=== PATIENT | male | born 1990 | race Caucasian/White ===

== ENCOUNTER 2017-12-10 03:45 | Emergency (ER) | payer MEDICAID, OTHER ==
[~2017-12-10 03:45] MED LIST: FAMOTIDINE 20 MG/NACL 50 ML IV ONE; methylPREDNISolone SOD SUCC 125 MG/2 ML VIAL IVP ONE
[2017-12-10] MEDS ORDERED: diphenhydrAMINE 50 MG CAP PO ONE (03:53)
[2017-12-10] MEDS ORDERED: HYDROCORTISONE 100 MG/2 ML VIAL ONE (03:53)
[2017-12-10] MEDS ORDERED: predniSONE 20 MG TAB ONE (03:53)
[2017-12-10] MEDS ORDERED: methylPREDNISolone SOD SUCC 125 MG/2 ML VIAL ONE (03:57)
[2017-12-10] MEDS ORDERED: FAMOTIDINE 20 MG/NACL/50 ML BAG IV ONE (03:57)
--- NOTE | 2017-12-10 04:03 | EDPHY ---
H & P Stated Complaint: allergic reation Time Seen by Provider: 12/10/17 03:56 HPI/ROS: Chief Complaint: Allergic reaction HPI: 27-year-old male presenting with allergic reaction. Patient states last night he developed some hives after pending a dog that he is at sitting. He took some Benadryl with some relief. Symptoms were improved today. He sat on the couch at the dog was on and has been developing worsening itching and hives primarily on his arms and side. No shortness of breath. No history of prior allergies that he is aware of. No other known exposures. No fevers or chills. No cough. ROS: 10 point Review of Systems is negative except as noted in the HPI. PMH: Denies Social History: No smoking, no alcohol, no recreational drug use Family History: non-contributory Physical Exam: Gen: Awake, Alert, No Distress HEENT: Nose: no rhinorrhea Eyes: PERRLA, EOMI Mouth: Moist mucosa oral airway is nonedematous, no erythema, Neck: Supple, no JVD Chest: nontender, lungs clear to auscultation Heart: S1, S2 normal, no murmur Abd: Soft, non-tender, no guarding Back: no CVA tenderness, no midline tenderness Ext: no edema, non-tender Skin: Patient has diffuse urticaria on the dorsum of his hands on his forearms. Under his arms. Mildly on his back. A bilateral flanks and chest. Neuro: CN II-XII intact, Sensation grossly intact, Strength 5/5 in bilateral upper and lower extremities - Medical/Surgical History Hx Asthma: No Hx Chronic Respiratory Disease: No Hx Diabetes: No Hx Cardiac Disease: No Hx Renal Disease: No Hx Cirrhosis: No Hx Alcoholism: No Hx HIV/AIDS: No Hx Splenectomy or Spleen Trauma: No Other PMH: denies - Social History Smoking Status: Never smoked Constitutional: Initial Vital Signs Temperature (C) 36.6 C 12/10/17 03:53 Heart Rate 78 12/10/17 03:53 Respiratory Rate 20 12/10/17 03:53 Blood Pressure 152/97 H 12/10/17 03:53 O2 Sat (%) 96 12/10/17 03:53 O2 Delivery Mode Room Air Allergies/Adverse Reactions: No Known Allergies Allergy (Unverified 12/10/17 03:53) Home Medications: Medication Instructions Recorded clonAZEPAM [Klonopin] 0 mg PO 03/03/12 predniSONE 60 mg PO DAILY #9 tab 12/10/17 Medical Decision Making ED Course/Re-evaluation: Patient is improved after Benadryl Solu-Medrol and Pepcid. Rash is resolving. He has no breathing or airway complaints. Will discharge with prednisone and continuing Benadryl, follow up with primary care physician. - Data Points Medications Given: Discontinued Medications Diphenhydramine HCl (Benadryl Injection) 50 mg IVP EDNOW ONE Stop: 12/10/17 03:46 Last Admin: 12/10/17 04:04 Dose: 50 mg Famotidine/Sodium Chloride (Pepcid 20 Mg (Premix)) 50 mls @ 200 mls/hr IV EDNOW ONE Stop: 12/10/17 03:59 Last Admin: 12/10/17 04:04 Dose: 50 mls Methylprednisolone Sodium Succinate (Solu-Medrol) 125 mg IVP EDNOW ONE Stop: 12/10/17 03:46 Last Admin: 12/10/17 04:04 Dose: 125 mg Departure - Departure Disposition: Home, Routine, Self-Care Clinical Impression: Allergic reaction Condition: Good Instructions: General Allergic Reaction (ED) Additional Instructions: Please take her full 3 day course of prednisone. Take Benadryl, 50 mg every 4-6 hours for the next 24 hr. Follow up with primary care physician tomorrow for re-evaluation in to arrange for formal allergy testing. Referrals: NONE *PRIMARY CARE P,. [Primary Care Provider] - As per Instructions Prescriptions: predniSONE 60 mg PO DAILY #9 tab
[2017-12-10 04:40] VITALS: BP 119/69
== END 2017-12-10 04:54 | disposition home or self-care (01) ==
DX: T78.40XA Allergy, unspecified, initial encounter (principal)
CPT/HCPCS: 96365; J1200; J1720; J2930; J7512